=== PATIENT | female | born 1995 | race Caucasian/White ===

== ENCOUNTER 2017-11-18 02:01 | Emergency (ER) | payer OTHER ==
[~2017-11-18] VITALS: Ht 165.1 cm; Wt 68.5 kg
[2017-11-18 02:19] VITALS: BP 120/93
--- NOTE | 2017-11-18 03:06 | NUR ---
Pt presents to ED with lower right quadrant pain radiating to right lower back with 7/10 pain. Pt states she was Dx with kidney stone x2 weeks ago and has an US appoinment in one week. Pt is concerned she is passing a stone and wishes MD consult at this time. A&Ox4, Afebrile, skin warm and dry. VSS. ER MD aware. Continue to monitor.
--- NOTE | 2017-11-18 03:07 | NUR ---
PATIENT AMBULATED TO ER CHAIR C
[2017-11-18 03:40] LABS: APPEARANCE,URINE CLEAR (CLEAR); BILIRUBIN,URINE NEGATIVE (NEGATIVE); BLOOD, URINE 2+ (NEGATIVE); COLOR,URINE YELLOW (YELLOW); LEUKOCYTE ESTERASE ,URINE NEGATIVE (NEGATIVE); NITRITE, URINE NEGATIVE (NEGATIVE); UGLUCOSE NEGATIVE (NEGATIVE)
[2017-11-18 03:57] LABS: RBC,URINE 3-10 (FEW) /HPF (0-5); URINE AMORPHOUS URATE 2+ /HPF (None Seen); WBC,URINE 0-5 (RARE) /HPF (0-5)
--- NOTE | 2017-11-18 04:30 | NUR ---
PT AMBULATED TO BED 12
[2017-11-18] MEDS ORDERED: HYDROcodone/APAP 5/325 MG 1 TAB TAB PO ONE (04:45)
[2017-11-18 05:42] VITALS: BP 120/93
--- NOTE | 2017-11-18 05:42 | NUR ---
Patient discharged with v/s stable with decreased pain. Written and verbal after care instructions given and explained. Patient alert, oriented and verbalized understanding of instructions. Ambulatory with steady gait. All questions addressed prior to discharge. ID band removed. Patient advised to follow up with PMD. Rx of norco and zofran given. Patient educated on indication of medication including possible reaction and side effects. Opportunity to ask questions provided and answered.
== END 2017-11-18 05:42 | disposition home or self-care (01) ==
LOC: MED 02:01
DX: N20.0 Calculus of kidney (principal)
CPT/HCPCS: 81001; 81025; 99285